=== PATIENT | female | born 1990 | race Caucasian/White ===

== ENCOUNTER → 2017-04-16 | Outpatient (CLI) | payer BC ==
[~2017-04-16] MED LIST: ALBUAER2 INH; ALL180 PO; AUGMENTIN; SNG10 PO
== END | disposition home or self-care (01) ==
LOC: C.PAPS 09:56
PROVIDERS: ATTEND Obstetrics & Gynecology
DX: Z01.419 Encounter for gynecological examination (general) (routine) without abnormal findings (principal); N87.0 Mild cervical dysplasia